=== PATIENT | female | born 1985 ===

== ENCOUNTER 2024-11-13 02:14 | Emergency (ER) | payer OTHER ==
[~2024-11-13] VITALS: Ht 157.5 cm; Wt 79.1 kg
[~2024-11-13 02:14] MED LIST: CALCIUM500 MG PO; COLACE100 MG PO; PERCOCET 5-3251 EACH PO; PRENATAL ONE T1 EACH PO; ZOFRAN4 MG PO
[2024-11-13] MEDS ORDERED: KETOROLAC TROMETHAMINE 30 MG/ML VIAL IV ONE (02:45)
[2024-11-13] MEDS ORDERED: METOCLOPRAMIDE HCL 10 MG/2 ML SDV IV ONE (02:45)
[2024-11-13] MEDS ORDERED: PROMETHAZINE HCL 25 MG HOME.PACK PO ONE (03:30)
[2024-11-13] MEDS ORDERED: BUTALB-ACETAMI1 EACH PO (03:30)
[2024-11-13] MEDS ORDERED: SODIUM CHLORIDE 0.9% 500 ML IV ONE (03:45)
[2024-11-13 04:16] VITALS: BP 126/86
[2024-11-13] MEDS ORDERED: PROMETHAZINE HC25 M1 PO (21:44)
[2024-11-13] MEDS ORDERED: TOPAMAX50 MG PO (23:10)
[2024-11-13] MEDS ORDERED: REGLAN10 MG PO (23:10)
[2024-11-13] MEDS ORDERED: IMITREX50 MG PO (23:11)
== END 2024-11-13 04:18 | disposition home or self-care (01) ==
LOC: ED 02:14
DX: G43.909 Migraine, unspecified, not intractable, without status migrainosus (principal); Z79.899 Other long term (current) drug therapy
CPT/HCPCS: 96372; 96374; 96375; 99283-25; J1200; J1885; J2765; J3030; J7040

== ENCOUNTER 2024-11-13 21:26 | Emergency (ER) | payer OTHER ==
[~2024-11-13] VITALS: Ht 157.5 cm; Wt 79.2 kg
[~2024-11-13 21:26] MED LIST changes: +BUTALB-ACETAMI1 EACH PO
--- OUTSIDE RECORDS SUMMARY | 2024-11-13 21:30 | XMS ---
PreManage Notification: [place] Security Nursing Service Director Events No recent Security Events currently on file CRITERIA MET - [facility] - 2 Visits in 30 Days CARE PROVIDERS COURTNEY Macias [facility] Current PHONE: Unknown Jerry has no Care Guidelines for this patient. E.Kerri VISIT COUNT (12 MO.) 2 [facility] TOTAL 2 NOTE: Visits indicate total known visits. ED/UCC VISIT TRACKING (12 MO.) 11/13/2024 21:27 [facility] [place] TYPE: Emergency COMPLAINT: - HEADACHE 11/13/2024 02:15 [facility] [place] TYPE: Emergency COMPLAINT: - HEADACHE INPATIENT VISIT TRACKING (12 MO.) No inpatient visits to display in this time frame [email or web address]
[2024-11-13] MEDS ORDERED: PROMETHAZINE HC25 M1 PO (21:44)
[2024-11-13 21:53] LABS: MCH 31.0 PG (25.6-32.2); MCHC 34.9 g/dL (32.2-35.5); MCV 88.8 fL (79.4-94.8); RBC 3.94 M/uL (3.93-5.22)
[2024-11-13] MEDS ORDERED: HYDROmorphone HCL 1 MG/ML SYR IV PRN (22:00)
[2024-11-13] MEDS ORDERED: DEXAMETHASONE SOD PHOS 4 MG/ML VIAL IV ONE (22:00)
[2024-11-13] MEDS ORDERED: KETOROLAC TROMETHAMINE 15 MG/ML VIAL IV ONE (22:00)
[2024-11-13] MEDS ORDERED: PROCHLORPERAZINE EDISYLATE 10 MG/2 ML VIAL IV ONE (22:00)
[2024-11-13 22:04] LABS: LYMPHOCYTES, MANUAL DIFF 15; MONOCYTES, MANUAL DIFF 9; NEUTROPHILS, MANUAL DIFF 76
[2024-11-13 22:09] LABS: ALT (SGPT) 15.0 U/L (14-59); AST (SGOT) 11.0 U/L (15-37); GLOMERULAR FILTRATION RATE,EST 78.0 mL/min (>60); PROTEIN, TOTAL 7.0 g/dL (6.4-8.2); UREA NITROGEN 12.0 mg/dL (7-18)
[2024-11-13] MEDS ORDERED: REGLAN10 MG PO (23:10)
[2024-11-13] MEDS ORDERED: TOPAMAX50 MG PO (23:10)
[2024-11-13] MEDS ORDERED: IMITREX50 MG PO (23:11)
[2024-11-13 23:18] VITALS: BP 111/64
== END 2024-11-13 23:19 | disposition home or self-care (01) ==
LOC: ED 21:26
PROVIDERS: Family Medicine
DX: G43.909 Migraine, unspecified, not intractable, without status migrainosus (principal); Z79.899 Other long term (current) drug therapy
CPT/HCPCS: 36415; 70450; 80053; 84703; 85025; 96374; 96375; 99284-25; J0780; J1100; J1885

== ENCOUNTER 2024-11-19 20:34 | Emergency (ER) | payer OTHER ==
[~2024-11-19] VITALS: Ht 157.5 cm; Wt 77.0 kg
[~2024-11-19 20:34] MED LIST changes: +IMITREX50 MG PO; +PROMETHAZINE HC25 M1 PO; +REGLAN10 MG PO; +TOPAMAX50 MG PO
--- OUTSIDE RECORDS SUMMARY | 2024-11-19 20:41 | XMS ---
PreManage Notification: KARLI [place] Security Forest Technician Events No recent Security Events currently on file CRITERIA MET - [facility] - 2 Visits in 30 Days CARE PROVIDERS SARAI WHITE Nurse Practitioner: Family Current PHONE: [phone] Jerry has no Care Guidelines for this patient. EMichael VISIT COUNT (12 MO.) 3 [facility] TOTAL 3 NOTE: Visits indicate total known visits. ED/C VISIT TRACKING (12 MO.) 11/19/2024 20:35 [facility] [place] TYPE: Emergency COMPLAINT: - HEADACHE 11/13/2024 21:27 [facility] [place] TYPE: Emergency COMPLAINT: - HEADACHE DIAGNOSES: - Migraine, unspecified, not intractable, without status migrainosus - Other detention (current) drug therapy 11/13/2024 02:15 [facility] [place] TYPE: Emergency COMPLAINT: - HEADACHE DIAGNOSES: - Headache, unspecified - Migraine, unspecified, not intractable, without status migrainosus - Other detention (current) drug therapy INPATIENT VISIT TRACKING (12 MO.) No inpatient visits to display in this time frame [email or web address]
[2024-11-19 21:12] LABS: BASOPHILS 0.4 % (0.1-1.2); EOSINOPHILS 2.0 % (0.7-5.8); LYMPHOCYTES 23.8 % (19.3-51.7); MCH 31.5 PG (25.6-32.2); MCHC 35.7 g/dL (32.2-35.5); MCV 88.3 fL (79.4-94.8); MONOCYTES 6.4 % (4.7-12.5); NEUTROPHILS 67.1 % (34.0-71.1); RBC 4.28 M/uL (3.93-5.22)
[2024-11-19] MEDS ORDERED: KETOROLAC TROMETHAMINE 30 MG/ML VIAL IV ONE (21:15)
[2024-11-19] MEDS ORDERED: METOCLOPRAMIDE HCL 10 MG/2 ML SDV IV ONE (21:15)
[2024-11-19 21:28] LABS: ALT (SGPT) 8.0 U/L (14-59); AST (SGOT) 7.0 U/L (15-37); GLOMERULAR FILTRATION RATE,EST 75.0 mL/min (>60); PROTEIN, TOTAL 7.7 g/dL (6.4-8.2); UREA NITROGEN 16.0 mg/dL (7-18)
[2024-11-19 22:13] LABS: ERYTHROCYTE SEDIMENTATION RATE 15
[2024-11-19 22:43] VITALS: BP 128/76
== END 2024-11-19 22:44 | disposition home or self-care (01) ==
LOC: ED 20:34
PROVIDERS: Family Medicine
DX: R51.9 Headache, unspecified (principal); Z79.899 Other long term (current) drug therapy
CPT/HCPCS: 36415; 80053; 82375; 83735; 85025; 85651; 86140; 96372; 96374; 96375; 99284-25; J1200; J1885; J2765; J3030